=== PATIENT | female | born 1995 | race Caucasian/White ===

== ENCOUNTER 2020-05-09 12:08 | Emergency (ER) | payer MEDICAID ==
[~2020-05-09] VITALS: Ht 157.5 cm; Wt 73.0 kg
[~2020-05-09 12:08] MED LIST: ABILIFY; SERTRALINE
[2020-05-09] MEDS ORDERED: MORPHINE SULFATE 4 MG/ML CPJ (NOT FOR IM USE) IV STA (13:14)
[2020-05-09] MEDS ORDERED: ONDANSETRON HCL 4MG/2ML INJ IV STA (13:14)
[2020-05-09] MEDS ORDERED: SODIUM CHLORIDE 0.9% 1,000 ML IV ONE (13:14)
[2020-05-09 13:59] LABS: BASOPHILS % 0.3 % (0.0-2.0); EOSINOPHILS % 0.4 % (0.0-5.0); HEMATOCRIT. 39.5 % (36.0-48.0); HEMOGLOBIN. 13.5 g/dL (12.0-16.0); LYMPHOCYTES % 22.8 % (20.0-50.0); MEAN CORPUSCULAR HEMOGLOBIN 31.7 pg (28.0-32.0); MEAN CORPUSCULAR VOLUME 92.7 fL (81.0-99.0); MEAN PLATELET VOLUME 8.4 fl (7.4-10.4); MONOCYTES % 6.8 % (2.0-8.0); NEUTROPHILS % 69.7 % (40.0-76.0); PLATELET 241 x1000/uL (130-400); RED BLOOD CELL COUNT 4.26 mill/uL (4.2-5.4); RED CELL DISTRIBUTION WIDTH 13.5 % (11.6-14.6)
[2020-05-09 14:07] LABS: HCG SCREEN NEGATIVE
[2020-05-09 14:08] LABS: CHLORIDE 107 mEq/L (98-107)
[2020-05-09] MEDS ORDERED: KETOROLAC 30MG/ML VIAL IV ONE (15:30)
[2020-05-09 16:26] VITALS: BP 112/69
== END 2020-05-09 16:39 | disposition home or self-care (01) ==
LOC: ER 12:08
DX: S06.0X9A Concussion with loss of consciousness of unspecified duration, initial encounter (principal); S76.911A Strain of unspecified muscles, fascia and tendons at thigh level, right thigh, initial encounter; S70.01XA Contusion of right hip, initial encounter; R03.0 Elevated blood-pressure reading, without diagnosis of hypertension; W22.8XXA Striking against or struck by other objects, initial encounter; Y93.17 Activity, water skiing and wake boarding; Y92.838 Other recreation area as the place of occurrence of the external cause
CPT/HCPCS: 36415; 70450; 71045; 72170; 80053; 84703; 85025; 96361; 96374; 96375; 99285; J1885; J2270; J2405; J7030

== ENCOUNTER 2024-01-03 20:57 | Emergency (ER) | payer MEDICAID, OTHER ==
[~2024-01-03] VITALS: Ht 160 cm; Wt 71.0 kg
[2024-01-03 21:13] VITALS: BP 131/89; TEMP 99.1; O2SAT 98
[2024-01-03] MEDS ORDERED: BO1 TP (22:51)
[2024-01-03] MEDS ORDERED: IBUP-2029 MT (22:51)
[2024-01-03] MEDS ORDERED: CHLO473M11 MM (22:51)
[2024-01-03 23:15] VITALS: PULSE 107; RESP 16
== END 2024-01-03 23:16 | disposition home or self-care (01) ==
LOC: ER 20:57
DX: S00.512A Abrasion of oral cavity, initial encounter (principal); R51.9 Headache, unspecified; Z90.49 Acquired absence of other specified parts of digestive tract; Z79.899 Other long term (current) drug therapy; W18.39XA Other fall on same level, initial encounter; Y93.89 Activity, other specified; Y92.89 Other specified places as the place of occurrence of the external cause; Y99.8 Other external cause status
CPT/HCPCS: 70486; 81025; 99284

== ENCOUNTER 2025-07-30 23:16 | Emergency (ER) | payer OTHER ==
[~2025-07-30] VITALS: Ht 157.5 cm; Wt 71.7 kg
[~2025-07-30 23:16] MED LIST changes: +BO1 TP; +CHLO473M11 MM; +IBUP-2029 MT
[2025-07-30 23:23] VITALS: O2SAT 100
[2025-07-30 23:29] VITALS: BP 145/96; PULSE 67; RESP 16; TEMP 36.7; O2SAT 100
== END 2025-07-31 04:10 | disposition left against medical advice (07) ==
LOC: ER 23:16
DX: R10.9 Unspecified abdominal pain (principal); Z53.21 Procedure and treatment not carried out due to patient leaving prior to being seen by health care provider